=== PATIENT | female | born 1990 | race Caucasian/White ===

== ENCOUNTER 2018-03-29 13:40 | Emergency (ER) | payer MEDICAID, OTHER ==
[~2018-03-29] VITALS: Ht 157.5 cm; Wt 87.0 kg
[2018-03-29] MEDS ORDERED: SODIUM CHLORIDE 0.9% 1,000 ML IV ONE (14:44)
[2018-03-29] MEDS ORDERED: DIPHENHYDRAMINE 50MG/ML VIAL IV ONE (14:45)
[2018-03-29] MEDS ORDERED: METOCLOPRAMIDE HCL 10MG/2ML VIAL IV ONE (14:45)
[2018-03-29 16:28] LABS: BASOPHILS % 0.4 % (0.0-2.0); CHLORIDE 104 mEq/L (98-107); EOSINOPHILS % 1.5 % (0.0-5.0); HEMATOCRIT. 37.5 % (36.0-48.0); HEMOGLOBIN. 12.4 g/dL (12.0-16.0); LYMPHOCYTES % 18.8 % (20.0-50.0); MEAN CORPUSCULAR HEMOGLOBIN 26.7 pg (28.0-32.0); MEAN CORPUSCULAR VOLUME 80.5 fL (81.0-99.0); MEAN PLATELET VOLUME 8.4 fl (7.4-10.4); MONOCYTES % 4.4 % (2.0-8.0); NEUTROPHILS % 74.9 % (40.0-76.0); PLATELET 309 x1000/uL (130-400); RED BLOOD CELL COUNT 4.66 mill/uL (4.2-5.4); RED CELL DISTRIBUTION WIDTH 14.3 % (11.6-14.6)
[2018-03-29 17:07] LABS: B-HCG QUANTITATIVE 42064 mIU/mL (<3)
[2018-03-29 17:34] LABS: CLARITY URINE CLOUDY (CLEAR); COLOR URINE YELLOW (YELLOW); KETONES URINE TRACE (NEGATIVE); LEUKOCYTE ESTERASE URINE 1+ (NEGATIVE); NITRITE URINE NEGATIVE (NEGATIVE); OCCULT BLOOD URINE NEGATIVE (NEGATIVE); PH URINE 6.5 (4.5-8.0); PROTEIN URINE TRACE (NEGATIVE); SPECIFIC GRAVITY URINE 1.018 (1.005-1.030); UROBILINOGEN URINE 0.2 E.U./dL (0.2-1.0)
[2018-03-29 19:23] VITALS: BP 128/81
== END 2018-03-29 19:26 | disposition home or self-care (01) ==
LOC: ER 13:40
DX: O29.41 Spinal and epidural anesthesia induced headache during pregnancy, first trimester (principal); O23.41 Unspecified infection of urinary tract in pregnancy, first trimester; O26.891 Other specified pregnancy related conditions, first trimester; O16.1 Unspecified maternal hypertension, first trimester; H53.8 Other visual disturbances; Z3A.10 10 weeks gestation of pregnancy
CPT/HCPCS: 36415; 76801; 80053; 81003; 81025; 84702; 85025; 96361; 96374; 96375; 99284; J1200; J2765; J7030